=== PATIENT | male | born 1980 | race Caucasian/White ===

== ENCOUNTER → 2024-10-17 13:40 | Outpatient (CLI) | payer OTHER, SELFPAY ==
--- NOTE | 2024-10-17 13:53 | DI.RAD.S_ITS ---
PROCEDURE: XR FOOT RT MIN 3V INDICATIONS: foot pain TECHNIQUE: 3 views of the foot were acquired. COMPARISON: None. FINDINGS: Bones: Mildly displaced comminuted fracture of the midportion of the 1st proximal phalanx. No suspicious bony lesions. Soft tissues: No tibiotalar joint effusion. Achilles tendon appears normal. IMPRESSION: Mildly displaced comminuted 1st proximal phalangeal fracture. Dictated by: Emile Mcfadden M.D. on 10/17/2024 at 16:22 Approved by: Emile Mcfadden M.D. on 10/17/2024 at 16:23
== END ==
PROVIDERS: Referring Provider Nurse Practitioner Family; Visit Provider Nurse Practitioner Family
DX: S92.411A Displaced fracture of proximal phalanx of right great toe, initial encounter for closed fracture (principal); M79.676 Pain in unspecified toe(s); S90.111A Contusion of right great toe without damage to nail, initial encounter; W10.9XXA Fall (on) (from) unspecified stairs and steps, initial encounter
CPT/HCPCS: 73630